=== PATIENT | female | born 1960 | race Caucasian/White ===

== ENCOUNTER 2017-04-15 13:03 | Inpatient (IN) | payer BC, OTHER ==
[2017-04-15] VITALS (8 sets, daily range): BP systolic 143–165; BP diastolic 83–109
[~2017-04-15] VITALS: Ht 160 cm; Wt 86.4 kg
[2017-04-15 13:41] LABS: Basophils # (auto) 0.1 uL; Basophils % (auto) 1.3 % (0.0-2.0); Eosinophils # (auto) 0.1 uL; Eosinophils % (auto) 1.4 % (0.0-7.0); Hematocrit 39.4 % (36.0-46.0); Hemoglobin 13.3 g/dL (12.2-16.2); Lymphocytes # (auto) 1.7 uL; Lymphocytes % (auto) 20.8 % (10.0-50.0); Mean Corpuscular Hemoglobin 31.7 pg (28.0-32.0); Mean Corpuscular Hgb Conc. 33.7 g/dL (32.0-36.0); Monocytes # (auto) 0.4 uL; Neutrophils # (auto) 5.8 uL; Neutrophils % (auto) 71.5 % (37.0-80.0); Nucleated Red Blood Cells % 0.2 %; Platelet Count (auto) 251 10^3/uL (140-450); Red Blood Cells 4.19 10^6/uL (4.0-5.20); Red Cell Distribution Width 15.1 % (11.8-14.3); White Blood Cell 8.1 10^3/uL (4.4-10.8)
[2017-04-15 13:51] LABS: Albumin 3.8 g/dL (3.4-5.0); BUN/Creatinine Ratio 19.7; Calcium 8.7 mg/dL (8.5-10.1); Magnesium 2.1 mg/dL (1.6-2.6); Potassium 3.5 mmol/L (3.5-5.1)
[2017-04-15 13:56] LABS: Bilirubin, Total 0.5 mg/dL (0.2-1.0); Total Protein 7.6 g/dL (6.4-8.2)
[2017-04-15] MEDS ORDERED: MORPHINE SULFATE 10 MG/ML INJ 1ML SDV IV ONE (14:45)
[2017-04-15] MEDS ORDERED: ONDANSETRON HCL 4 MG/2 ML VIAL IV ONE (14:45)
[2017-04-15 14:56] LABS: INR 0.94 (0.9-1.15); Partial Thromboplastin Time 22.7 sec (22.64-33.71); Prothrombin Time 10.2 sec (9.37-12.3)
[2017-04-15] MEDS ORDERED: ACETAMINOPHEN 500 MG TAB PO PRN (15:45)
[2017-04-15] MEDS ORDERED: HYDROcodone-ACET 5/325MG TAB PO PRN (15:45)
[2017-04-15] MEDS ORDERED: MORPHINE SULFATE 10 MG/ML INJ 1ML SDV IV PRN ×2 (15:45)
[2017-04-15] MEDS ORDERED: LORazepam 0.5 MG TAB PO PRN (15:45)
[2017-04-15] MEDS ORDERED: TEMAZEPAM 15 MG CAP PO PRN (15:45)
[2017-04-15] MEDS ORDERED: PROMETHAZINE HCL 25 MG/ML 1ML IV PRN (15:45)
[2017-04-15] MEDS ORDERED: LACTULOSE 20Gm/30ML SOLN PO PRN (15:45)
[2017-04-15] MEDS ORDERED: NITROGLYCERIN 0.4 MG SL TAB SL PRN (15:45)
[2017-04-15] MEDS ORDERED: DEXTROSE (50%) 50ML SYRG IV PRN (16:15)
[2017-04-15] MEDS ORDERED: ASPirin 81 mg TAB PO ONE (16:30)
[2017-04-15] MEDS ORDERED: PANTOPRAZOLE 40 MG TAB PO ONE (16:30)
[2017-04-15] MEDS: ACCU-CHEK COMFORT CURVE STRIP VI SCH ×2 (16:44→21:53)
[2017-04-15] MEDS: InsuLIN REG 1unit/0.01ml Soln (100units/ml) SC SCH ×2 (16:44→21:54)
[2017-04-15] MEDS: NITROGLYCERIN 50MG/250ML 250 ML IV SCH (16:47)
[2017-04-15] MEDS: SODIUM CHLORIDE 0.9% 1,000 ML IV SCH (16:48)
[2017-04-15 17:50] LABS: Alcohol, Urine < 3.0 mg/dL (0-5); Amphetamine Screen, Urine NEGATIVE (NEGATIVE); Barbiturate Scree,Urine NEGATIVE (NEGATIVE); Benzodiazephine Screen, Urine NEGATIVE (NEGATIVE); Cannabinoid Screen, Urine NEGATIVE (NEGATIVE); Cocaine Screen, Urine NEGATIVE (NEGATIVE); Opiate Scree,Urine POSITIVE (NEGATIVE); Phencyclidine Screen, Urine NEGATIVE (NEGATIVE)
[2017-04-15] MEDS: ATORVASTATIN 20 MG TAB PO SCH (21:52)
[2017-04-15] MEDS: METOPROLOL TARTRATE 25 MG TAB PO SCH (21:52)
[2017-04-15] MEDS ORDERED: ENOXAPARIN SOD 80 MG/0.8ML SYRINGE SC SCH (22:00)
[2017-04-16] VITALS (56 sets, daily range): BP systolic 103–163; BP diastolic 40–99
[2017-04-16] MEDS ORDERED: HEPARIN DRIP/D5W 100UNITS/ML 250 ML IV SCH (00:02)
[2017-04-16] MEDS ORDERED: HEPARIN SODIUM (PORCINE) 5000 UNITS/ML 1ML VIAL ONE (00:04)
[2017-04-16] MEDS ORDERED: HEPARIN SODIUM (PORCINE) 5000 UNITS/ML 1ML VIAL IV ONE (00:15)
[2017-04-16] MEDS ORDERED: IOHEXOL 350 MG/ML 100ML IJ ONE (02:09)
[2017-04-16] MEDS ORDERED: LIDOCAINE 2%HCL (LOCAL ANESTH.) INJ 20ML MDV ONE (02:09)
[2017-04-16] MEDS ORDERED: MIDAZOLAM HCL 1MG/1ML-2 ML VIAL ONE (02:26)
[2017-04-16] MEDS ORDERED: ANGIOMAX 250 MG VIAL IV ONE (02:27)
[2017-04-16] MEDS ORDERED: fentaNYL CITRATE 100 MCG/2 ML VL ONE (02:27)
[2017-04-16] MEDS ORDERED: ONDANSETRON HCL 4 MG/2 ML VIAL ONE (02:27)
[2017-04-16] MEDS ORDERED: SODIUM CHL 0.9% 0 ML ONE (02:27)
[2017-04-16] MEDS ORDERED: VANCOMYCIN 1GM/250ML 250 ML IV ONE (04:00)
[2017-04-16] MEDS ORDERED: PRASUGREL HCL 10 MG TAB ONE (04:06)
[2017-04-16] MEDS: NITROGLYCERIN 50MG/250ML 250 ML IV SCH ×2 (05:01→09:43)
[2017-04-16] MEDS: SODIUM CHLOR 0.9% PF (SALINE LOCK) 10ML VIAL IV SCH ×3 (06:00→22:02)
[2017-04-16 06:37] LABS: Basophils # (auto) 0 uL; Basophils % (auto) 0.4 % (0.0-2.0); Eosinophils # (auto) 0 uL; Hematocrit 41.1 % (36.0-46.0); Hemoglobin 13.8 g/dL (12.2-16.2); Lymphocytes # (auto) 0.8 uL; Lymphocytes % (auto) 6.6 % (10.0-50.0); Mean Corpuscular Hemoglobin 31.7 pg (28.0-32.0); Mean Corpuscular Hgb Conc. 33.5 g/dL (32.0-36.0); Mean Corpuscular Volume 94.6 fL (80.0-100.0); Monocytes # (auto) 0.3 uL; Monocytes % (auto) 2.3 % (0.0-12.0); Neutrophils # (auto) 11.5 uL; Neutrophils % (auto) 90.7 % (37.0-80.0); Platelet Count (auto) 212 10^3/uL (140-450); Red Blood Cells 4.34 10^6/uL (4.0-5.20); White Blood Cell 12.6 10^3/uL (4.4-10.8)
[2017-04-16 06:54] LABS: INR 0.96 (0.9-1.15); Partial Thromboplastin Time 35.3 sec (22.64-33.71); Prothrombin Time 10.5 sec (9.37-12.3)
[2017-04-16] MEDS: InsuLIN REG 1unit/0.01ml Soln (100units/ml) SC SCH ×4 (07:00→22:11)
[2017-04-16] MEDS: ACCU-CHEK COMFORT CURVE STRIP VI SCH ×4 (07:00→22:11)
[2017-04-16 07:05] LABS: Albumin 3.7 g/dL (3.4-5.0); BUN/Creatinine Ratio 17.7; Bilirubin, Total 0.6 mg/dL (0.2-1.0); Calcium 8.7 mg/dL (8.5-10.1); Potassium 3.9 mmol/L (3.5-5.1); Total Protein 7.6 g/dL (6.4-8.2)
[2017-04-16] MEDS: SODIUM CHLORIDE 0.9% 1,000 ML IV SCH ×3 (09:30→17:58)
[2017-04-16] MEDS: PANTOPRAZOLE 40 MG TAB PO SCH (09:41)
[2017-04-16] MEDS: PRASUGREL HCL 10 MG TAB PO SCH (09:46)
[2017-04-16] MEDS: ASPirin 81 mg TAB PO SCH (09:46)
[2017-04-16] MEDS ORDERED: ENALAPRIL MALEATE 10 MG TAB PO SCH (10:00)
[2017-04-16] MEDS ORDERED: MECL-87 PO (10:17)
[2017-04-16] MEDS: METOPROLOL TARTRATE 25 MG TAB PO SCH (10:19)
[2017-04-16] MEDS: ISOSORBIDE MONONITRATE 60 MG TAB PO SCH (12:30)
[2017-04-16 17:53] LABS: Urine Bacteria NONE SEEN /hpf (None Seen); Urine Blood Negative /uL (Negative); Urine Specific Gravity 1.002 (1.001-1.035); Urine WBC <1 /hpf (0 - 5)
[2017-04-16] MEDS: ATORVASTATIN 20 MG TAB PO SCH (22:02)
[2017-04-16] MEDS: CARVEDILOL 12.5 MG TAB PO SCH (22:02)
[2017-04-16] MEDS: ENALAPRIL MALEATE 10 MG TAB PO SCH (22:03)
[2017-04-16] MEDS ORDERED: MECLIZINE HCL 25 MG TAB PO ONE (22:30)
[2017-04-17] VITALS (40 sets, daily range): BP systolic 81–133; BP diastolic 47–84
[2017-04-17 03:47] LABS: Basophils # (auto) 0.1 uL; Basophils % (auto) 0.7 % (0.0-2.0); Eosinophils # (auto) 0 uL; Eosinophils % (auto) 0.2 % (0.0-7.0); Hemoglobin 12.5 g/dL (12.2-16.2); Lymphocytes # (auto) 1.3 uL; Lymphocytes % (auto) 12.2 % (10.0-50.0); Mean Corpuscular Hemoglobin 31.4 pg (28.0-32.0); Mean Corpuscular Hgb Conc. 33.8 g/dL (32.0-36.0); Mean Corpuscular Volume 92.9 fL (80.0-100.0); Monocytes # (auto) 0.8 uL; Monocytes % (auto) 7.2 % (0.0-12.0); Neutrophils # (auto) 8.7 uL; Neutrophils % (auto) 79.7 % (37.0-80.0); Nucleated Red Blood Cells % 0.1 %; Platelet Count (auto) 243 10^3/uL (140-450); Red Blood Cells 3.98 10^6/uL (4.0-5.20); Red Cell Distribution Width 14.8 % (11.8-14.3); White Blood Cell 10.9 10^3/uL (4.4-10.8)
[2017-04-17 04:04] LABS: BUN/Creatinine Ratio 17.5; Calcium 8.5 mg/dL (8.5-10.1); Potassium 3.8 mmol/L (3.5-5.1)
[2017-04-17] MEDS: SODIUM CHLOR 0.9% PF (SALINE LOCK) 10ML VIAL IV SCH ×3 (06:03→21:57)
[2017-04-17] MEDS: ACCU-CHEK COMFORT CURVE STRIP VI SCH ×4 (06:03→21:57)
[2017-04-17] MEDS: InsuLIN REG 1unit/0.01ml Soln (100units/ml) SC SCH ×4 (06:04→22:04)
[2017-04-17] MEDS: PANTOPRAZOLE 40 MG TAB PO SCH (10:19)
[2017-04-17] MEDS: ASPirin 81 mg TAB PO SCH (10:19)
[2017-04-17] MEDS: ENALAPRIL MALEATE 10 MG TAB PO SCH ×2 (10:19→22:00)
[2017-04-17] MEDS: CARVEDILOL 12.5 MG TAB PO SCH ×2 (10:19→22:00)
[2017-04-17] MEDS: PRASUGREL HCL 10 MG TAB PO SCH (10:19)
[2017-04-17] MEDS: ISOSORBIDE MONONITRATE 60 MG TAB PO SCH (10:20)
[2017-04-17] MEDS: ATORVASTATIN 20 MG TAB PO SCH (21:57)
[2017-04-18 00:33] VITALS: BP 112/70
[2017-04-18 05:00] VITALS: BP 101/50
[2017-04-18] MEDS: SODIUM CHLOR 0.9% PF (SALINE LOCK) 10ML VIAL IV SCH ×2 (05:47→14:33)
[2017-04-18] MEDS: ACCU-CHEK COMFORT CURVE STRIP VI SCH ×3 (05:48→17:18)
[2017-04-18] MEDS: InsuLIN REG 1unit/0.01ml Soln (100units/ml) SC SCH ×3 (06:07→17:18)
[2017-04-18 09:00] VITALS: BP 102/55
[2017-04-18] MEDS: ISOSORBIDE MONONITRATE 60 MG TAB PO SCH (10:05)
[2017-04-18] MEDS: PANTOPRAZOLE 40 MG TAB PO SCH (10:05)
[2017-04-18] MEDS: PRASUGREL HCL 10 MG TAB PO SCH (10:05)
[2017-04-18] MEDS: ASPirin 81 mg TAB PO SCH (10:06)
[2017-04-18] MEDS: CARVEDILOL 12.5 MG TAB PO SCH (10:06)
[2017-04-18] MEDS: ENALAPRIL MALEATE 10 MG TAB PO SCH (10:06)
[2017-04-18 13:00] VITALS: BP 92/58
[2017-04-18] MEDS ORDERED: CAR125T PO (16:32)
[2017-04-18] MEDS ORDERED: ASPI81CH43 PO (16:32)
[2017-04-18] MEDS ORDERED: ATOR20TA50 PO (16:32)
[2017-04-18] MEDS ORDERED: PRAS10TA6 PO (16:32)
[2017-04-18] MEDS ORDERED: ENA10T PO (16:32)
[2017-04-18] MEDS ORDERED: ISO60SRT PO (16:32)
== END 2017-04-18 17:35 | disposition home or self-care (01) | DRG 247 ==
LOC: ER 13:03 → EDBD 13:03 → OVERFLOW 13:04 → ICU WEST 20:24 → TELE-WESTW 04-18
PROVIDERS: ADMIT Internal Medicine; ATTEND Internal Medicine
PROC: 027035Z Dilation of Coronary Artery, One Artery with Two Drug-eluting Intraluminal Devices, Percutaneous Approach (ICD-10-PCS; principal; 2017-04-16)
PROC: 4A023N7 Measurement of Cardiac Sampling and Pressure, Left Heart, Percutaneous Approach (ICD-10-PCS; 2017-04-16)
PROC: B2111ZZ Fluoroscopy of Multiple Coronary Arteries using Low Osmolar Contrast (ICD-10-PCS; 2017-04-16)
PROC: B2151ZZ Fluoroscopy of Left Heart using Low Osmolar Contrast (ICD-10-PCS; 2017-04-16)
DX: I21.4 Non-ST elevation (NSTEMI) myocardial infarction (principal); E11.65 Type 2 diabetes mellitus with hyperglycemia; E87.1 Hypo-osmolality and hyponatremia; E66.9 Obesity, unspecified; E78.5 Hyperlipidemia, unspecified; I10 Essential (primary) hypertension; I25.10 Atherosclerotic heart disease of native coronary artery without angina pectoris; Z68.33 Body mass index [BMI] 33.0-33.9, adult; Z82.49 Family history of ischemic heart disease and other diseases of the circulatory system
CPT/HCPCS: 36415; 71020; 80048; 80053; 80061; 80307; 81001; 82550; 82962; 83036; 83735; 83880; 84443; 84484; 85025; 85379; 85610; 85652; 85730; 86141; 87081; 92928; 93005; 93306; 93458; 94761; 96365; 96375; 99152; 99153; C1874; J1815; J2250; J2405

== ENCOUNTER → 2017-11-13 | Outpatient (CLI) | payer OTHER ==
[~2017-11-13] MED LIST: ASPI81CH43 PO; ATOR20TA50 PO; CAR125T PO; ENA10T PO; ISO60SRT PO; MECL-87 PO; PRAS10TA6 PO
== END | disposition home or self-care (01) ==
LOC: Rad HDHVI 08:55
PROVIDERS: ATTEND Internal Medicine Cardiovascular Disease
DX: I10 Essential (primary) hypertension (principal); I25.10 Atherosclerotic heart disease of native coronary artery without angina pectoris; E11.65 Type 2 diabetes mellitus with hyperglycemia; E78.5 Hyperlipidemia, unspecified; R07.89 Other chest pain
CPT/HCPCS: 93306

== ENCOUNTER → 2017-12-10 | Outpatient (CLI) | payer OTHER ==
[~2017-12-10] VITALS: Ht 165.1 cm; Wt 83.0 kg
== END | disposition home or self-care (01) ==
LOC: Rad HDHVI 08:27
PROVIDERS: ATTEND Internal Medicine Cardiovascular Disease
DX: I10 Essential (primary) hypertension (principal); I25.10 Atherosclerotic heart disease of native coronary artery without angina pectoris; I21.9 Acute myocardial infarction, unspecified
CPT/HCPCS: 78452; 93017; 96374; A9500

== ENCOUNTER → 2018-04-28 | Outpatient (CLI) | payer OTHER | END | disposition home or self-care (01) | LOC: Rad HDHVI 07:57 | PROVIDERS: ATTEND Internal Medicine Cardiovascular Disease | DX: I65.23 Occlusion and stenosis of bilateral carotid arteries (principal); R09.89 Other specified symptoms and signs involving the circulatory and respiratory systems; R42 Dizziness and giddiness; I10 Essential (primary) hypertension | CPT/HCPCS: 93880 ==

== ENCOUNTER 2019-05-04 20:13 | Emergency (ER) | payer OTHER ==
[~2019-05-04] VITALS: Ht 165.1 cm; Wt 86.2 kg
[~2019-05-04 20:13] MED LIST changes: -ENA10T PO; +ENAL10TA PO
[2019-05-04 20:39] VITALS: BP 159/59
[2019-05-05] MEDS ORDERED: ONDANSETRON ODT 4 MG TAB PO ONE (02:30)
[2019-05-05] MEDS ORDERED: MORPHINE SULFATE 10 MG/ML INJ 1ML SDV IM ONE (02:30)
== END 2019-05-05 03:40 | disposition home or self-care (01) ==
LOC: ER 20:14
DX: S82.831A Other fracture of upper and lower end of right fibula, initial encounter for closed fracture (principal); V49.49XA Driver injured in collision with other motor vehicles in traffic accident, initial encounter; Y93.89 Activity, other specified; Y99.8 Other external cause status; Y92.89 Other specified places as the place of occurrence of the external cause
CPT/HCPCS: 29515; 73130; 73610; 96372; 99283; J2270; Q0162

== ENCOUNTER → 2019-11-18 | Outpatient (CLI) | payer OTHER ==
[~2019-11-18] VITALS: Ht 165.1 cm; Wt 88.5 kg
[~2019-11-18] MED LIST changes: -MECL-87 PO; +MECL25TA18 PO
== END | disposition home or self-care (01) ==
LOC: Rad HDHVI 08:20
PROVIDERS: ATTEND Internal Medicine Cardiovascular Disease
DX: I10 Essential (primary) hypertension (principal); I25.10 Atherosclerotic heart disease of native coronary artery without angina pectoris; I25.2 Old myocardial infarction; E78.00 Pure hypercholesterolemia, unspecified; Z82.49 Family history of ischemic heart disease and other diseases of the circulatory system
CPT/HCPCS: 78452; 93017; 96374; A9500

== ENCOUNTER → 2019-11-21 | Outpatient (CLI) | payer OTHER ==
[2019-11-21 12:19] LABS: Urine Blood Negative /uL (Negative); Urine Specific Gravity 1.006 (1.001-1.035)
[2019-11-21 12:21] LABS: Basophils # (auto) 0.1 10 ^3/uL (0-0.2); Basophils % (auto) 1.5 % (0.0-2.0); Eosinophils # (auto) 0.1 10 ^3/uL (0-0.8); Eosinophils % (auto) 2.3 % (0.0-7.0); Hematocrit 40.3 % (36.0-46.0); Hemoglobin 13.5 g/dL (12.2-16.2); Lymphocytes # (auto) 1.7 10 ^3/uL (0.4-5.4); Lymphocytes % (auto) 25.9 % (10.0-50.0); Mean Corpuscular Hemoglobin 31.6 pg (28.0-32.0); Mean Corpuscular Hgb Conc. 33.6 g/dL (32.0-36.0); Mean Corpuscular Volume 94.1 fL (80.0-100.0); Monocytes # (auto) 0.5 10 ^3/uL (0-1.3); Monocytes % (auto) 7.6 % (0.0-12.0); Neutrophils # (auto) 4.1 10 ^3/uL (1.6-8.6); Neutrophils % (auto) 62.7 % (37.0-80.0); Platelet Count (auto) 261 10^3/uL (140-450); Red Blood Cells 4.28 10^6/uL (4.0-5.20); Red Cell Distribution Width 14.8 % (11.8-14.3); White Blood Cell 6.5 10^3/uL (4.4-10.8)
[2019-11-21 12:34] LABS: INR 0.97 (0.9-1.15); Partial Thromboplastin Time 25.6 sec (23.64-32.05)
[2019-11-21 12:48] LABS: Free T4 (Free Thyroxine) 1.04 ng/dL (0.89-1.76); Potassium 4.1 mmol/L (3.5-5.1)
[2019-11-21 16:26] LABS: BUN/Creatinine Ratio 16.7
[2019-11-21 16:27] LABS: Bilirubin, Total 0.7 mg/dL (0.2-1.0); Calcium 8.9 mg/dL (8.5-10.1); Total Protein 7.3 g/dL (6.4-8.2)
[2019-11-21 16:28] LABS: Albumin 3.7 g/dL (3.4-5.0)
== END | disposition home or self-care (01) ==
LOC: Rad HDHVI 09:55
PROVIDERS: ATTEND Internal Medicine Cardiovascular Disease
DX: Z01.812 Encounter for preprocedural laboratory examination (principal); E03.9 Hypothyroidism, unspecified; K90.9 Intestinal malabsorption, unspecified; N39.0 Urinary tract infection, site not specified; D51.9 Vitamin B12 deficiency anemia, unspecified; Z79.899 Other long term (current) drug therapy
CPT/HCPCS: 36415; 80053; 80061; 81003; 82306; 82607; 83036; 84439; 84443; 85025; 85610; 85730

== ENCOUNTER → 2020-06-21 | Outpatient (CLI) | payer OTHER ==
[~2020-06-21] MED LIST changes: -ENAL10TA PO; +ENAL10TA12 PO
== END | disposition home or self-care (01) ==
LOC: Rad HDHVI 14:11
PROVIDERS: ATTEND Internal Medicine Cardiovascular Disease
DX: I25.10 Atherosclerotic heart disease of native coronary artery without angina pectoris (principal); I10 Essential (primary) hypertension; E78.00 Pure hypercholesterolemia, unspecified; I25.2 Old myocardial infarction; R07.89 Other chest pain; Z82.49 Family history of ischemic heart disease and other diseases of the circulatory system
CPT/HCPCS: 78452; 93017; 96374; A9500

== ENCOUNTER → 2020-06-22 | Outpatient (CLI) | payer OTHER | END | disposition home or self-care (01) | LOC: Rad HDHVI 14:32 | PROVIDERS: ATTEND Internal Medicine Cardiovascular Disease | DX: I25.10 Atherosclerotic heart disease of native coronary artery without angina pectoris (principal) | CPT/HCPCS: 93306 ==